=== PATIENT | female | born 1955 | race Caucasian/White ===

== ENCOUNTER 2016-03-01 16:33 | Inpatient (IN) | payer MEDICAID ==
[~2016-03-01] VITALS: Ht 162.6 cm; Wt 105.9 kg
[2016-03-01] MEDS ORDERED: HYDR25TA PO (17:18)
[2016-03-01] MEDS ORDERED: MULT-1192 PO (17:18)
[2016-03-01] MEDS ORDERED: ESCI20TA PO (17:18)
[2016-03-01] MEDS ORDERED: IPRA4AER IH (17:18)
[2016-03-01] MEDS ORDERED: MELO-273 PO (17:18)
[2016-03-01] MEDS ORDERED: ASPI-891 PO (17:18)
[2016-03-01] MEDS ORDERED: LISI-661 PO (17:18)
[2016-03-01 17:56] LABS: BASOPHILS % (AUTO) 0.4 % (0.0-2.0); EOSINOPHILS % (AUTO) 2.8 % (1.0-6.0); HEMATOCRIT 37.8 % (36-46); HEMOGLOBIN 12.1 g/dL (12.0-16.0); LYMPHOCYTES # (AUTO) 2.4 K/uL (1.0-4.8); LYMPHOCYTES % (AUTO) 16.8 % (22.0-44.0); MEAN CORPUSCULAR HEMOGLOBIN 25.5 pg (26.0-34.0); MEAN CORPUSCULAR VOLUME 80 fL (80-100); MONOCYTES # (AUTO) 1.3 K/uL (0.1-1.0); MONOCYTES % (AUTO) 8.8 % (2.0-9.0); NEUTROPHILS # (AUTO) 10.3 K/uL (1.8-7.7); NEUTROPHILS % (AUTO) 71.2 % (40.0-70.0); PLATELET COUNT (AUTO) 389 K/uL (150-450); RED BLOOD CELL COUNT(AUTO) 4.73 MIL/uL (4.00-5.20); RED CELL DISTRIBUTION WIDTH 14.9 % (11.5-14.5); WHITE BLOOD COUNT (AUTO) 14.5 K/uL (4.5-11.0)
[2016-03-01 17:58] LABS: ANION GAP 8 mmol/L (8-16); CALCIUM, TOTAL 8.8 mg/dL (8.8-10.5); CARBON DIOXIDE 29 mmol/L (22-29); CHLORIDE 103 mmol/L (98-107); CREATININE 1.19 mg/dL (0.60-1.30); GLOMERULAR FILTR. RATE CALC 47 mL/min (>60); POTASSIUM 3.9 mmol/L (3.5-5.1); SODIUM SERUM 140 mmol/L (136-145); UREA NITROGEN, BLOOD 15 mg/dL (7-18)
[2016-03-01] MEDS ORDERED: FAMOTIDINE 10 MG/ML 2 ML VIAL IVP ONE (18:15)
[2016-03-01] MEDS ORDERED: ONDANSETRON HCL 4 MG/2 ML VIAL IVP ONE (18:15)
[2016-03-01] MEDS ORDERED: HYDROmorphone 2 MG/ML SYRINGE IVP ONE (18:15)
[2016-03-01 18:23] LABS: ALANINE AMINOTRANSFERASE 32 U/L (12-78); ALBUMIN 3.5 g/dL (3.4-5.0); ASPARTATE AMINOTRANSFERASE 19 U/L (15-37); BILIRUBIN,TOTAL 0.3 mg/dL (0.1-1.0); CREATINE KINASE MB 2.5 ng/mL (0-5); CREATINE KINASE, TOTAL 209 U/L (26-192); TOTAL PROTEIN, SERUM 6.9 g/dL (6.4-8.2)
[2016-03-01 18:51] LABS: B-TYPE NATRIURETIC PEPTIDE 220 pg/mL (0-100)
[2016-03-01 19:50] LABS: APPEARANCE,URINE CLEAR (CLEAR); GLUCOSE, URINE (UA) NEGATIVE (NEGATIVE); KETONES,URINE NEGATIVE (NEGATIVE); LEUKOCYTE ESTERASE ,URINE NEGATIVE (NEGATIVE); OCCULT BLOOD,URINE NEGATIVE (NEGATIVE); PROTEIN,URINE NEGATIVE (NEGATIVE)
[2016-03-01 19:51] LABS: ADD UA MICROSCOPIC NO
[2016-03-01] MEDS ORDERED: SIMVASTATIN 20 MG TABLET PO ONE (20:00)
[2016-03-01] MEDS ORDERED: ASPIRIN 81 MG CHEWABLE TABLET PO ONE (20:00)
[2016-03-01] MEDS ORDERED: NITROGLYCERIN 2% (1 GM=INCH) PACKET TP ONE (20:00)
[2016-03-01] MEDS ORDERED: OXYGEN THERAPY IH SCH (20:00)
[2016-03-01] MEDS ORDERED: 0.9% SODIUM CHLORIDE 10 ML SYRINGE IVP PRN (20:15)
[2016-03-01] MEDS ORDERED: ONDANSETRON HCL 4 MG/2 ML VIAL IVP PRN (20:15)
[2016-03-01] MEDS ORDERED: ENOXAPARIN SODIUM 60 MG/0.6 ML PF SYRINGE SQ ONE (20:15)
[2016-03-01 21:23] VITALS: BP 141/82
[2016-03-02 01:41] VITALS: BP 99/56
[2016-03-02 06:24] VITALS: BP 151/56
[2016-03-02 06:40] LABS: BASOPHILS # (AUTO) 0.07 K/uL (0.00-0.20); BASOPHILS % (AUTO) 0.8 % (0.0-2.0); EOSINOPHILS % (AUTO) 4.31 % (1.0-6.0); HEMATOCRIT 33.3 % (36-46); HEMOGLOBIN 10.8 g/dL (12.0-16.0); LYMPHOCYTES # (AUTO) 2.3 K/uL (1.0-4.8); LYMPHOCYTES % (AUTO) 25.2 % (22.0-44.0); MEAN CORPUSCULAR HGB CONC 32.6 G/dL (31.0-37.0); MEAN CORPUSCULAR VOLUME 80 fL (80-100); MONOCYTES # (AUTO) 0.9 K/uL (0.1-1.0); MONOCYTES % (AUTO) 10.1 % (2.0-9.0); NEUTROPHILS # (AUTO) 5.5 K/uL (1.8-7.7); NEUTROPHILS % (AUTO) 59.6 % (40.0-70.0); PLATELET COUNT (AUTO) 323 K/uL (150-450); RED BLOOD CELL COUNT(AUTO) 4.17 MIL/uL (4.00-5.20); RED CELL DISTRIBUTION WIDTH 15.3 % (11.5-14.5); WHITE BLOOD COUNT (AUTO) 9.2 K/uL (4.5-11.0)
[2016-03-02 06:41] LABS: HEMOGLOBIN A1C 6.2 % (4.5-6.2)
[2016-03-02 07:13] LABS: ALBUMIN 2.9 g/dL (3.4-5.0); BILIRUBIN,TOTAL 0.3 mg/dL (0.1-1.0); CALCIUM, TOTAL 8.5 mg/dL (8.8-10.5); CHOL/HDL RATIO 3.3 (3.9-5.7); CREATININE 1.45 mg/dL (0.60-1.30); MAGNESIUM 2.2 mg/dL (1.80-2.40); POTASSIUM 4.3 mmol/L (3.5-5.1); TOTAL PROTEIN, SERUM 5.8 g/dL (6.4-8.2)
[2016-03-02 07:16] VITALS: BP 90/50
[2016-03-02] MEDS ORDERED: SODIUM CHLORIDE 0.9% 1,000 ML IV ONE (08:50)
[2016-03-02] MEDS: NITROGLYCERIN 2% (1 GM=INCH) PACKET TP SCH ×3 (08:51→19:58)
[2016-03-02] MEDS ORDERED: HYDROCHLOROTHIAZIDE 25 MG TABLET PO SCH (09:00)
[2016-03-02] MEDS ORDERED: ESCITALOPRAM OXALATE 20 MG TABLET PO SCH ×2 (09:00)
[2016-03-02] MEDS ORDERED: LISINOPRIL 10 MG TABLET PO SCH (09:00)
[2016-03-02] MEDS ORDERED: ASPIRIN 325 MG EC TABLET PO SCH (09:00)
[2016-03-02] MEDS ORDERED: MELOXICAM 7.5 MG TABLET PO SCH (09:00)
[2016-03-02] MEDS: MULTIVITAMINS, THERAPEUTIC TABLET PO SCH (09:03)
[2016-03-02] MEDS: ASPIRIN 81 MG EC TABLET PO SCH (09:03)
[2016-03-02] MEDS: PANTOPRAZOLE SODIUM 40 MG DR TABLET PO SCH (09:03)
[2016-03-02] MEDS: SODIUM CHLORIDE 0.9% 1,000 ML IV SCH ×2 (09:25→19:58)
[2016-03-02] MEDS ORDERED: SESTAMIBI TC99M/UD ISOTOPE 1 EA INJ INJ ONE (09:45)
[2016-03-02 11:18] VITALS: BP 112/59
[2016-03-02 15:10] VITALS: BP 107/44
[2016-03-02] MEDS ORDERED: IPRATROPIUM BROMIDE 0.5 MG/2.5 ML NEB SOLUTION NEB PRN (15:30)
[2016-03-02] MEDS ORDERED: ALBUTEROL SULFATE 2.5 MG/0.5 ML NEB SOLUTION NEB PRN (15:30)
[2016-03-02] MEDS ORDERED: 0.9% SODIUM CHLORIDE 5 ML NEB SOLUTION NEB ONE (16:02)
[2016-03-02 19:25] VITALS: BP 99/56
[2016-03-02] MEDS ORDERED: ATORVASTATIN CALCIUM 20 MG TABLET PO SCH (21:00)
[2016-03-03 00:01] VITALS: BP 127/78
[2016-03-03 04:32] VITALS: BP 126/59
[2016-03-03] MEDS: SODIUM CHLORIDE 0.9% 1,000 ML IV SCH (05:21)
[2016-03-03 06:17] LABS: BASOPHILS % (AUTO) 0.7 % (0.0-2.0); EOSINOPHILS % (AUTO) 5.4 % (1.0-6.0); HEMATOCRIT 33.1 % (36-46); HEMOGLOBIN 10.5 g/dL (12.0-16.0); LYMPHOCYTES # (AUTO) 2.2 K/uL (1.0-4.8); LYMPHOCYTES % (AUTO) 26.1 % (22.0-44.0); MEAN CORPUSCULAR HEMOGLOBIN 25.5 pg (26.0-34.0); MEAN CORPUSCULAR HGB CONC 31.8 G/dL (31.0-37.0); MEAN CORPUSCULAR VOLUME 80 fL (80-100); MONOCYTES # (AUTO) 0.8 K/uL (0.1-1.0); MONOCYTES % (AUTO) 9.4 % (2.0-9.0); NEUTROPHILS # (AUTO) 4.8 K/uL (1.8-7.7); NEUTROPHILS % (AUTO) 58.4 % (40.0-70.0); PLATELET COUNT (AUTO) 304 K/uL (150-450); RED BLOOD CELL COUNT(AUTO) 4.12 MIL/uL (4.00-5.20); RED CELL DISTRIBUTION WIDTH 14.9 % (11.5-14.5); WHITE BLOOD COUNT (AUTO) 8.3 K/uL (4.5-11.0)
[2016-03-03 06:34] LABS: ALBUMIN 2.8 g/dL (3.4-5.0); BILIRUBIN,TOTAL 0.2 mg/dL (0.1-1.0); CALCIUM, TOTAL 8.2 mg/dL (8.8-10.5); CREATININE 1.21 mg/dL (0.60-1.30); MAGNESIUM 2.1 mg/dL (1.80-2.40); POTASSIUM 4.2 mmol/L (3.5-5.1); TOTAL PROTEIN, SERUM 5.9 g/dL (6.4-8.2)
[2016-03-03 07:09] VITALS: BP 139/86
[2016-03-03 07:45] VITALS: BP 117/56
[2016-03-03] MEDS ORDERED: REGADENOSON 0.4 MG/5 ML PF SYRINGE IVP ONE ×2 (08:02→13:49)
[2016-03-03 08:03] VITALS: BP 125/67
[2016-03-03] MEDS ORDERED: AMINOPHYLLINE 25 MG/ML 10 ML VIAL IVP ONE ×2 (08:05→13:49)
[2016-03-03] MEDS ORDERED: SESTAMIBI TC99M/UD ISOTOPE 1 EA INJ INJ ONE (08:05)
[2016-03-03] MEDS: NITROGLYCERIN 2% (1 GM=INCH) PACKET TP SCH (09:00)
[2016-03-03] MEDS: ASPIRIN 81 MG EC TABLET PO SCH (10:15)
[2016-03-03] MEDS: PANTOPRAZOLE SODIUM 40 MG DR TABLET PO SCH (10:15)
[2016-03-03] MEDS: MULTIVITAMINS, THERAPEUTIC TABLET PO SCH (10:15)
[2016-03-03 11:33] VITALS: BP 130/68
== END 2016-03-03 13:50 | disposition home or self-care (01) | DRG 190 ==
LOC: EMS 16:35 → 5S 20:14
PROVIDERS: ADMIT Family Medicine; ATTEND Family Medicine
DX: I21.4 Non-ST elevation (NSTEMI) myocardial infarction (principal); N17.9 Acute kidney failure, unspecified; I20.9 Angina pectoris, unspecified; J44.9 Chronic obstructive pulmonary disease, unspecified; I10 Essential (primary) hypertension; D64.9 Anemia, unspecified; F32.9 Major depressive disorder, single episode, unspecified; F17.210 Nicotine dependence, cigarettes, uncomplicated; Z79.899 Other long term (current) drug therapy; Z79.82 Long term (current) use of aspirin; Z88.6 Allergy status to analgesic agent; Z88.5 Allergy status to narcotic agent; Z88.8 Allergy status to other drugs, medicaments and biological substances
CPT/HCPCS: 76700; 78452; 83036; 83735; 93005; 93017; 93306; 94640; 96372; 96374; 96375; 99291; A9500; J0280; J1170; J1650; J2405; J2785; J3490; J7030